=== PATIENT | male | born 1940 | race Caucasian/White ===

== ENCOUNTER 2020-11-22 18:24 | Emergency (ER) | payer MEDICARE, MEDICAID, SELFPAY ==
[2020-11-22 18:52] VITALS: BP 130/52; PULSE 87; RESP 16; TEMP 37.2; O2SAT 97; BMI 25.4
[2020-11-22 19:40] LABS: Influenza A PCR NEGATIVE (Negative); Influenza B PCR NEGATIVE (Negative); Resp Syncy Virus RNA Qual PCR NEGATIVE (Negative); SARS COV2 PCR INHOUSE POSITIVE (Negative)
--- NOTE | 2020-11-22 20:12 | ED.MEDCLEAR ---
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 When I asked the patient directly, he denied any trouble breathing, shortness of breath or chest pain. 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 Related Information Allergies Allergy/AdvReac Type Severity Reaction Status Date / Time pollen extracts [POLLEN] Allergy Unknown UNKOWN Unverified 12/16/19 15:12 Review of Systems Review of Systems: Yes all other systems are reviewed and are negative PMFSH Past Medical History Medical History BPH (benign prostatic hyperplasia) Diabetes Hypertension Intellectual disability Osteoarthritis Social History Social History Advance Directives: No Advance Directives Information Provided: No Physical Exam Vital Signs: Vital Signs: Last Vital Signs Temp 99.0 F 11/22/20 18:52 Pulse 87 11/22/20 18:52 Resp 16 11/22/20 18:52 BP 130/52 L 11/22/20 18:52 Pulse Ox 97 11/22/20 18:52 Body Mass Index 25.4 Const: General: cooperative, healthy appearing, comfortable, no acute distress and well developed Nutritional Appearance: average body habitus Orientation/consciousness: Other orientation findings (Intellectually disabled, unable to perform test) Limitations: wheelchair HENMT: Head: Yes normal to inspection General nose exam: Normal external nose present Face and sinus: Yes normal facial exam Mouth: Normal oral and palatal mucosa present and moist mucous membranes Eyes: General: appearance normal, both eyes and all related structures Neck: Neck: Yes normal visual inspection and Yes full ROM Resp: Effort & Inspection: normal respiratory effort and able to speak in complete sentences Auscultation: clear to auscultation bilaterally Cardio: Rate: regular rate Rhythm: regular rhythm Heart sounds: normal S1 and S2 GI: Inspection: Yes normal to inspection Skin: General skin exam: no rashes or lesions noted Extrem: General: Yes normal to inspection MDM - Medical Clearance Lab Data Attestation: I reviewed the patient's lab results. Labs: Lab Results 11/22/20 Range/Units 18:55 Coronavirus (PCR) POSITIVE A (Negative) Influenza Type A (PCR) NEGATIVE (Negative) Influenza Type B (PCR) NEGATIVE (Negative) RSV RNA Qual (PCR) NEGATIVE (Negative) Discharge Plan Discharge Clinical Impression: COVID-19 Patient Disposition: Home, Self-Care Instructions: COVID-19 (Coronavirus Disease 2019) (ED) Additional Instructions: Please be sure to quarantine as instructed in the attached information. Please make sure the alf you within tests anyone who has been in contact with you over the last few days as they have been exposed to COVID as well. Since you are vaccinated, your symptoms should be mild, please treat her symptoms with [id number] medications. If he should develop shortness of breath, chest pain or any other concerning symptoms, please return to the emergency room or call 911.
== END 2020-11-22 20:20 | disposition home or self-care (01) ==
PROVIDERS: Emergency Provider Internal Medicine
DX: U07.1 COVID-19 (principal); Z79.899 Other long term (current) drug therapy
CPT/HCPCS: 0241U; 36415; 99283

== ENCOUNTER 2021-04-08 07:04 | Emergency (ER) | payer MEDICARE, MEDICAID, SELFPAY ==
--- NOTE | 2021-04-08 | ECG_ITS ---
Test Reason : fever Blood Pressure : / mmHG Vent. Rate : 104 BPM Atrial Rate : 104 BPM P-R Int : 154 ms QRS Dur : 080 ms QT Int : 322 ms P-R-T Axes : 040 074 044 degrees QTc Int : 423 ms Sinus tachycardia with frequent Premature ventricular complexes Otherwise normal ECG When compared with ECG of 20-AUG-2018 07:11, Premature ventricular complexes are now Present Referred By: Generic ED Physician Electronically Signed By:ELOISA PEREZ
--- NOTE | ~2021-04-08 | XR_ITS ---
EXAMINATION: XR CHEST CLINICAL INFORMATION: Fever. COMPARISON: Most recent chest radiograph dated 08/19/2018. TECHNIQUE: Frontal view of the chest was obtained. FINDINGS: Chronic interstitial prominence with minimal peripheral opacities in the left lung, new when compared to the prior examination. No pleural effusion or pneumothorax. Stable cardiomediastinal silhouette. Healed right rib fracture. No acute osseous abnormality. XR/XR chest 1V IMPRESSION: Minimal peripheral opacities in the left lung, new when compared to the prior examination.
[2021-04-08 07:18] VITALS: BP 171/68; PULSE 102; RESP 18; TEMP 38; O2SAT 96; BMI 25.7
[2021-04-08 07:46] LABS: MANUAL DIFF FLAG NO
[2021-04-08 07:47] LABS: Basophils Percent Auto 0.2 % (0-2); Eosinophils Absolute Auto 0.1 X10*3/uL (0.0-0.4); Eosinophils Percent Auto 0.5 % (0-4); Hematocrit 37.8 % (42.0-52.0); Hemoglobin 12.6 g/dl (14.0-18.0); Imm Gran Pct Auto 0.6 % (0.0-0.4); Lymphocytes Absolute Auto 1.3 X10*3/uL (1.2-4.9); Lymphocytes Percent Auto 7.4 % (20-40); Mean Corpuscular HGB Conc 33.3 g/dl (31.0-36.0); Mean Corpuscular Hemoglobin 29.9 pg (27.0-33.0); Mean Corpuscular Volume 89.8 fL (80.0-98.0); Mean Platelet Volume 10.5 fL (9.4-12.4); Monocytes Percent Auto 6.1 % (2-11); Neutrophils Absolute Auto 14.5 x10*3/uL (2.0-8.3); Neutrophils Percent Auto 85.2 % (45-73); Platelet Count 169 X10*3/uL (160-400); Red Blood Count 4.21 X10*6/uL (4.60-5.80); Red Cell Distribution Width 12.4 % (11.0-16.0)
--- NOTE | 2021-04-08 07:53 | ED.FEVER ---
HPI - Fever General Chief Complaint: Fever Stated Complaint: fever Time Seen by Provider: 04/08/21 07:53 Source: EMS Mode of arrival: EMS History of Present Illness HPI Narrative: [facility] with history of psychotic disorder hypertension diabetes sent for temperature of 103.2 degrees details not available patient is with poor comprehension unable to give any details Related Data Previous Rx's Medication Instructions Recorded cefpodoxime 100 mg tablet 100 mg PO BID #20 tab 04/08/21 Allergies Allergy/AdvReac Type Severity Reaction Status Date / Time pollen extracts [POLLEN] Allergy Unknown UNKOWN Unverified 12/16/19 15:12 Review of Systems Review of Systems: Yes Unobtainable due to mental status PMFSH Past Medical History Medical History BPH (benign prostatic hyperplasia) Diabetes Hypertension Intellectual disability Osteoarthritis Social History Social History Alcohol intake: unknown Patient Tobacco Use Status: Tobacco use Unknown Use of substances other than those prescribed or required for medical reasons: Unknown Advance Directives: No Advance Directives Information Provided: Yes Physical Exam Vital Signs: Vital Signs: Last Vital Signs Temp 100.4 F 04/08/21 07:18 Pulse 102 H 04/08/21 07:18 Resp 18 04/08/21 07:18 BP 171/68 H 04/08/21 07:18 Pulse Ox 96 04/08/21 07:18 BMI result Body Mass Index 25.7 Appearance: Alert. Oriented X1 No acute distress. Eyes: PERRLA, No Nystagmus ENT: Pharynx normal. Oral Mucosa moist Neck: Normal inspection. Neck supple. CVS: Normal heart rate and rhythm. Pulses normal. Respiratory: No respiratory distress. Equal air entry bilateral, no wheezing/rales/rhonchi Abdomen: Soft and nontender. Bowel sounds are present, no mass palpable, no CVA tenderness Skin: Skin warm and dry. Normal skin color. Normal skin turgor. Extremities: No lower extremity edema. No calf tenderness Neuro: Oriented X 3. No motor deficit. MDM - Fever MDM Narrative Medical decision making narrative: Patient low-grade fever with leukocytosis and UTI no actively vomiting looks comfortable will give 1 g of IV Rocephin in the ER and discharge patient [facility] on cef[facility]. Lab Data Attestation: I reviewed the patient's lab results. Result diagrams: 04/08/21 07:40 04/08/21 07:40 Labs: Lab Results 04/08/21 04/08/21 04/08/21 Range/Units 07:40 07:40 07:40 WBC 17.0 H (4.8-10.8) X10*3/uL RBC 4.21 L (4.60-5.80) X10*6/uL Hgb 12.6 L (14.0-18.0) g/dl Hct 37.8 L (42.0-52.0) % MCV 89.8 (80.0-98.0) fL MCH 29.9 (27.0-33.0) pg MCHC 33.3 (31.0-36.0) g/dl RDW 12.4 (11.0-16.0) % Plt Count 169 (160-400) X10*3/uL MPV 10.5 (9.4-12.4) fL Immature Gran % (Auto) 0.6 H (0.0-0.4) % Neut % (Auto) 85.2 H (45-73) % Lymph % (Auto) 7.4 L (20-40) % [place] % (Auto) 6.1 (2-11) % Eos % (Auto) 0.5 (0-4) % Baso % (Auto) 0.2 (0-2) % Lymph # (Auto) 1.3 (1.2-4.9) X10*3/uL [place] # (Auto) 1.0 (0.1-1.2) X10*3/uL Eos # (Auto) 0.1 (0.0-0.4) X10*3/uL Baso # (Auto) 0.0 (0.0-0.2) X10*3/uL Abs Immat Gran (auto) 0.10 H (0.00-0.03) X10*3/uL Absolute Neuts (auto) 14.5 H (2.0-8.3) x10*3/uL Absolute Nucleated RBC 0.000 (0.0-0.012) X10*3/uL Nucleated RBC % (auto) 0.0 (0.0-0.2) /100WBC Sodium 140 (135-145) mmol/L Potassium 3.9 (3.3-5.1) mmol/L Chloride 107 (96-108) mmol/L Carbon Dioxide 24 (22-29) mmol/L Anion Gap 13 (12-20) BUN 22 H (9-16) mg/dL Creatinine 0.81 (0.5-1.4) mg/dL Estim Creat Clear Calc 59.8 Estimated GFR > 60 Random Glucose 125 H (60-115) mg/dL Lactic Acid (0.5-2.0) mmol/L Calcium 8.8 (8.4-10.2) mg/dL Total Bilirubin 1.0 (0.0-1.0) mg/dL AST 15 (5-37) U/L ALT 16 (0-40) U/L Alkaline Phosphatase 81 (39-117) U/L Troponin I High Sens 11.2 (<3.5-35.0) ng/L Total Protein 6.4 L (6.5-8.0) g/dL Albumin 3.5 (3.5-5.0) g/dL Urine Color Urine Appearance Urine pH (5.0-8.0) Ur Specific [place] (1.005-1.025) Urine Protein (NEG-TRACE) MG/DL Urine Glucose (UA) (NEG) MG/DL Urine Ketones (NEG) MG/DL Urine Blood (NEG) Urine Nitrite (NEG) Ur Leukocyte Esterase (NEG) Urine RBC (0) /HPF Urine WBC (0-4) /HPF Ur Squamous Epith Cells /LPF Urine Bacteria /LPF COVID-19 (BRAD) (Negative) COVID-19 Clin Com 04/08/21 04/08/21 04/08/21 Range/Units 07:41 07:41 09:37 WBC (4.8-10.8) X10*3/uL RBC (4.60-5.80) X10*6/uL Hgb (14.0-18.0) g/dl Hct (42.0-52.0) % MCV (80.0-98.0) fL MCH (27.0-33.0) pg MCHC (31.0-36.0) g/dl RDW (11.0-16.0) % Plt Count (160-400) X10*3/uL MPV (9.4-12.4) fL Immature Gran % (Auto) (0.0-0.4) % Neut % (Auto) (45-73) % Lymph % (Auto) (20-40) % [place] % (Auto) (2-11) % Eos % (Auto) (0-4) % Baso % (Auto) (0-2) % Lymph # (Auto) (1.2-4.9) X10*3/uL [place] # (Auto) (0.1-1.2) X10*3/uL Eos # (Auto) (0.0-0.4) X10*3/uL Baso # (Auto) (0.0-0.2) X10*3/uL Abs Immat Gran (auto) (0.00-0.03) X10*3/uL Absolute Neuts (auto) (2.0-8.3) x10*3/uL Absolute Nucleated RBC (0.0-0.012) X10*3/uL Nucleated RBC % (auto) (0.0-0.2) /100WBC Sodium (135-145) mmol/L Potassium (3.3-5.1) mmol/L Chloride (96-108) mmol/L Carbon Dioxide (22-29) mmol/L Anion Gap (12-20) BUN (9-16) mg/dL Creatinine (0.5-1.4) mg/dL Estim Creat Clear Calc Estimated GFR Random Glucose (60-115) mg/dL Lactic Acid 0.8 (0.5-2.0) mmol/L Calcium (8.4-10.2) mg/dL Total Bilirubin (0.0-1.0) mg/dL AST (5-37) U/L ALT (0-40) U/L Alkaline Phosphatase (39-117) U/L Troponin I High Sens (<3.5-35.0) ng/L Total Protein (6.5-8.0) g/dL Albumin (3.5-5.0) g/dL Urine Color YELLOW Urine Appearance CLOUDY Urine pH 6.0 (5.0-8.0) Ur Specific [place] 1.020 (1.005-1.025) Urine Protein 1+ H (NEG-TRACE) MG/DL Urine Glucose (UA) NEG (NEG) MG/DL Urine Ketones 15 (NEG) MG/DL Urine Blood 2+ H (NEG) Urine Nitrite POS H (NEG) Ur Leukocyte Esterase 3+ H (NEG) Urine RBC 10-14 H (0) /HPF Urine WBC TNTC H (0-4) /HPF Ur Squamous Epith Cells NONE /LPF Urine Bacteria 2+ /LPF COVID-19 (BRAD) Negative (Negative) COVID-19 Clin Com See Note Discharge Plan Discharge Clinical Impression: UTI (urinary tract infection) Qualifiers: Urinary tract infection type: acute cystitis Hematuria presence: without hematuria Qualified Code(s): N30.00 - Acute cystitis without hematuria Patient Disposition: Home, Self-Care Instructions: Urinary Tract Infection in Men (ED) Additional Instructions: drink plenty of fluids take antibiotic as prescribed Tylenol/ Motrin for fever Prescriptions: New cefpodoxime 100 mg tablet 100 mg PO BID Qty: 20 RF: 0 Interventions: ED Discharge Assessment Last Done: 04/08/21 10:38 Discharge Date/Time: 04/08/21 11:20
[2021-04-08 08:00] LABS: COVID-19 Test Negative (Negative)
[2021-04-08 08:02] LABS: Lactic Acid 0.8 mmol/L (0.5-2.0)
[2021-04-08 08:09] LABS: Alanine Aminotransferase 16 U/L (0-40); Albumin Level 3.5 g/dL (3.5-5.0); Alkaline Phosphatase 81 U/L (39-117); Anion Gap 13 (12-20); Aspartate Amino Transferase 15 U/L (5-37); Blood Urea Nitrogen 22 mg/dL (9-16); Calcium 8.8 mg/dL (8.4-10.2); Carbon Dioxide 24 mmol/L (22-29); Chloride 107 mmol/L (96-108); Creatinine Clr Calc Pharmacy 59.8; Estimated Glomerular Filt Rate > 60; Glucose Random 125 mg/dL (60-115); Potassium 3.9 mmol/L (3.3-5.1); Sodium 140 mmol/L (135-145); Total Protein 6.4 g/dL (6.5-8.0)
[2021-04-08 08:13] LABS: Troponin-I High Sensitivity 11.2 ng/L (<3.5-35.0)
[2021-04-08 09:43] LABS: Appearance Urine CLOUDY; Color Urine YELLOW; Glucose Urine UA NEG (NEG); Leukocyte Esterase Urine 3+ (NEG); Nitrite Urine POS (NEG); UACC Culture Trigger YES; Urine Blood 2+ (NEG); Urine Ketones 15 MG/DL (NEG); Urine Protein 1+ MG/DL (NEG-TRACE)
[2021-04-08 09:49] LABS: Bacteria Urine 2+ /LPF; WBC Urine TNTC /HPF (0-4)
[2021-04-08] MEDS: cefTRIAXone sodium 1 GM in 0.9 % Sodium Chloride 50 ML IV (10:16)
== END 2021-04-08 11:20 | disposition home or self-care (01) ==
PROVIDERS: Emergency Provider Internal Medicine
DX: N30.00 Acute cystitis without hematuria (principal); Z20.822 Contact with and (suspected) exposure to COVID-19; R50.9 Fever, unspecified; I10 Essential (primary) hypertension; E11.9 Type 2 diabetes mellitus without complications
CPT/HCPCS: 36415; 51701; 71045; 80053; 81001; 83605; 84484; 85025; 87040; 87086; 87088; 87186; 87635; 93005; 96372; 99284; J0696

== ENCOUNTER 2023-12-26 19:07 | Emergency (ER) | payer MEDICARE, MEDICAID, SELFPAY ==
--- NOTE | ~2023-12-26 | XR_ITS ---
EXAMINATION: XR PELVIS CLINICAL INFORMATION: Trauma pain COMPARISON: None available. TECHNIQUE: AP view of the pelvis portable. FINDINGS: No fracture. Hip joint spaces are maintained. Alignment is anatomic. Sacroiliac joints and pubic symphysis are normal. No abnormal soft tissue calcifications. XR/XR pelvis 1-2V IMPRESSION: Normal pelvis. Electronically signed by: Naresh Nielson MD 12/26/2023 08:53 PM EDT RP
[2023-12-26 19:14] VITALS: BP 141/64; BP 154/62; PULSE 81; PULSE 83; RESP 16; TEMP 36.4; O2SAT 96; O2SAT 98; BMI 19.5
--- NOTE | 2023-12-26 21:15 | ED.FALL ---
HPI - Fall General Chief Complaint: Fall Stated Complaint: Fall from wheelchair, denies complaints Time Seen by Provider: 12/26/23 19:16 Source: other (Caregiver from senior care) History of Present Illness ED Provider: Leonor Brown PA-C HPI Narrative: 83-year-old male with a history of intellectual disabled, psychotic disorder, BPH, HTN, diabetes and osteoarthritis, essentially wheelchair-bound at baseline, presents after a fall at the senior care. Per senior care staff, the patient likes to lower himself to the ground from his wheelchair, he attempted to do so today. However, he began to slip further, staff was able to grab him and lower him to the ground. No true injury was sustained, however per their protocol, the patient requires a medical assessment. Related Data Previous Rx's ?Medication ?Instructions ?Recorded cefpodoxime 100 mg tablet 100 mg PO BID #20 tabs 04/08/21 Allergies Allergy/AdvReac Type Severity Reaction Status Date / Time pollen extracts [POLLEN] Allergy Unknown UNKOWN Verified 12/26/23 19:16 Review of Systems Review of Systems: Unable to obtain secondary to intellectual disability Yes all other systems are reviewed and are negative [facility] Past Medical History Attestation statement: The following information was validated with the patient. Medical History BPH (benign prostatic hyperplasia) Diabetes Hypertension Intellectual disability Osteoarthritis Social History Social History Alcohol intake: unknown Patient Tobacco Use Status: Tobacco use Unknown Advance Directives: No Advance Directives Information Provided: No Physical Exam Vital Signs: Vital Signs: Last Vital Signs Temp 97.6 F 12/26/23 19:14 Pulse 81 12/26/23 19:14 Resp 16 12/26/23 19:14 BP 154/62 H 12/26/23 19:14 Pulse Ox 96 12/26/23 19:14 O2 Del Method Room Air 12/26/23 19:14 BMI result Body Mass Index 19.5 Const: Other: Alert, overall well in appearance Orientation/consciousness: oriented to person Resp: Effort & Inspection: normal respiratory effort Cardio: Other: Normal peripheral perfusion Back/Spine/Pelvis: Other: No palpable pain of the length of the spine, no step-offs, no overlying ecchymosis or swelling, no pain elicited with the exam. The patient is somewhat contracted in the position, however can extend his lower extremities. He is able to use his upper extremities to help roll and manipulate positioning in the bed. Skin: Other: Warm dry no rash, there was no tissue breakdown noted over the sacral region or buttocks or perineum, he is in a brief which was saturated Neuro: General: oriented to person and CN's II-XI intact bilaterally Extrem: Other: Moves all extremities independently Psych: Other: Cooperative Medical Decision Making Medical Decision Making MDM Narrative: 83-year-old male with a history of intellectual disabled, psychotic disorder, BPH, HTN, diabetes and osteoarthritis, essentially wheelchair-bound at baseline, presents after a fall at the senior care. Per senior care staff, the patient likes to lower himself to the ground from his wheelchair, he attempted to do so today. However, he began to slip further, staff was able to grab him and lower him to the ground. No true injury was sustained, however per their protocol, the patient requires a medical assessment. Problem: Age, intellectual disability, mobility issues History: Per EMS and caregiver I have considered the following differential diagnoses: Fracture, dislocation, contusion Plan: Given the mechanism, it is highly unlikely the patient has sustained a fracture, however the caregiver will feel better to obtain imaging of his pelvis. We will do so to note my exam was benign I have independently reviewed the following tests: X-ray pelvis: No fracture no dislocation, arthritic changes noted Discharge Plan Discharge Clinical Impression: Accidental fall from wheelchair Patient Disposition: Home, Self-Care Additional Instructions: The x-ray of the pelvis was negative for fracture or dislocation, the patient does have arthritis. The patient can follow up with their primary care provider as needed. The patient can use [id number] Tylenol 1000 mg taken every 8 hours, if they complain of discomfort. Prescriptions: No Action cefpodoxime 100 mg tablet 100 mg PO BID Qty: 20 0RF Rx Instructions: must administer with a meal/food Print Language: Sinhala
[2023-12-26 22:45] VITALS: BP 138/86; PULSE 81; RESP 16; TEMP 36.4; O2SAT 96
== END 2023-12-26 22:45 | disposition home or self-care (01) ==
PROVIDERS: Emergency Provider Internal Medicine
DX: Z03.89 Encounter for observation for other suspected diseases and conditions ruled out (principal); Z91.81 History of falling; Z99.3 Dependence on wheelchair
CPT/HCPCS: 72170; 99282; 99283

== ENCOUNTER 2025-03-07 18:06 | Emergency (ER) | payer MEDICARE, MEDICAID, SELFPAY ==
--- NOTE | ~2025-03-07 | XR_ITS ---
CLINICAL HISTORY: chest pain, cough 1 view chest x-ray Comparison: None provided Findings: Mildly reduced lung volumes. Mild diffuse prominence of interstitial markings. No large pleural effusion. No pneumothorax. Normal heart size and central pulmonary vascularity. No acute soft tissue or osseous abnormality. Impression: 1. Mild prominence of interstitial markings. Findings may be accentuated by low lung volumes however mild interstitial edema or pneumonitis could be considered in the appropriate clinical setting. This document has been electronically signed by: Sumit Case MD on 03/07/2025 20:03:19
[2025-03-07 18:13] VITALS: BP 180/100; PULSE 104; O2SAT 97
--- NOTE | 2025-03-07 18:17 | ECG_ITS ---
Test Reason : cp Blood Pressure : */* mmHG Vent. Rate : 90 BPM Atrial Rate : 90 BPM P-R Int : 178 ms QRS Dur : 82 ms QT Int : 374 ms P-R-T Axes : 21 67 36 degrees QTcB Int : 457 ms Normal sinus rhythm with sinus arrhythmia Normal ECG When compared with ECG of 08-Apr-2021 08:16, Premature ventricular complexes are no longer Present Referred By: Generic ED Physician Electronically Signed By: SHARIF STEWART MD
[2025-03-07 18:22] VITALS: BP 180/77; PULSE 93; RESP 18; TEMP 36.4; O2SAT 98; BMI 17.3
[2025-03-07 18:47] LABS: MANUAL DIFF FLAG NO
[2025-03-07 18:50] LABS: Hematocrit 38.8 % (42.0-52.0); Hemoglobin 13.0 g/dl (14.0-18.0); Imm Gran Abs Auto 0.01 X10*3/uL (0.00-0.03); Imm Gran Pct Auto 0.1 % (0.0-0.4); Lymphocytes Absolute Auto 1.8 X10*3/uL (1.2-4.9); Mean Corpuscular HGB Conc 33.5 g/dl (31.0-36.0); Mean Corpuscular Hemoglobin 30.5 pg (27.0-33.0); Mean Corpuscular Volume 91.1 fL (80.0-98.0); NRBC Abs Auto 0.000 X10*3/uL (0.0-0.012); NRBC Pct Auto 0.0 /100WBC (0.0-0.2); Platelet Count 200 X10*3/uL (160-400); Red Blood Count 4.26 X10*6/uL (4.60-5.80); White Blood Count 6.9 X10*3/uL (4.8-10.8)
--- NOTE | 2025-03-07 18:51 | ED_ITS ---
HPI - Chest Pain General Chief Complaint: Chest Pain Stated Complaint: headache, chest pain, non verbal Time Seen by Provider: 03/07/25 18:51 Source: EMS and other (program aide group work) Mode of arrival: EMS Limitations: other (developmental delay) History of Present Illness ED Provider: HPI narrative: 84-year-old male presenting from [facility], he is essentially nonverbal, I spoke with the program aide group work who told me that patient was on a toilet and initially was pointing to his head and then pointed to his chest when asked where the pain is and EMS was called he received nitro and aspirin, when I evaluated the patient he was able to answer my questions and stated he wants to go home and he has no pain, he is otherwise limited historian however Related Data Previous Rx's ?Medication ?Instructions ?Recorded cefpodoxime 100 mg tablet 100 mg PO BID #20 tabs 04/08 Allergies Allergy/AdvReac Type Severity Reaction Status Date / Time pollen extracts (POLLEN) Allergy Unknown UNKOWN Verified 03/07/25 18:24 Review of Systems 2 Constitutional: Constitutional: Reports as per [facility] Past Medical History Medical History Intellectual disability BPH (benign prostatic hyperplasia) Osteoarthritis Hypertension Diabetes Social History Social History Alcohol intake: unknown Patient Tobacco Use Status: Tobacco use Unknown Smoked in Last 30 Days: No Use of substances other than those prescribed or required for medical reasons: No Physical Exam 2 Exam: Exam: ?General: ?Elderly some facial dysmorphia ?PERRLA, EOMI, MMM, Neck: Supple, no LAD ?CV: S1-S2 ?Resp: ?No wheezing rales rhonchi no stridor moving air well Abd: ?Bowel sounds are present, no tenderness no rebound no rigidity Skin: No jaundice ?Neuro: ?Alert able to answer yes and no questions moving upper and lower extremities symmetrically Vital Signs: Vital Signs: Last Vital Signs Temp 97.6 F 03/07/25 18:22 Pulse 93 03/07/25 18:22 Resp 18 03/07/25 18:22 BP 180/77 H 03/07/25 18:22 Pulse Ox 98 03/07/25 18:22 O2 Del Method Room Air 03/07/25 18:22 BMI result Body Mass Index 17.3 Medical Decision Making Medical Decision Making MDM Narrative: 7:13 PM 03/07/2025 (Dr. Sammy Vivar): Patient is a limited historian but he was able to point to his head in the epigastric area according to program aide group work and at bedside when I asked him whether he has pain he is able to answer yes and no questions what she is reassuring, abdominal exam is benign without distention tenderness or decreased bowel sounds to suspect there is underlying abdominal issue necessitating further imaging such as CT abdomen and pelvis, cardiac workup we will be obtained to make sure there is no evidence for underlying ACS, chest x-ray for pneumonia or pneumothorax, he was hypotensive, his list does not reveal any evidence that he is on blood pressure medications I will not start him on at this time given his age and history and we would like his PCP to be involved in this management Paramedics gave aspirin and nitro but this is nonspecific nor sensitive for ACS diagnosis as both can relieve GI pain or esophageal spasm etc. Differential Diagnosis Differential Diagnoses: The differential diagnosis associated with the presentation includes (ACS, SBO, volvulus, cholecystitis, gastritis,) Admission/Observation Consideration of admission/observation: Escalation of care including admission/observation considered Lab Data 03/07/25 18:41 03/07/25 18:41 Labs: Lab Results 03/07/25 Range/Units 18:41 WBC 6.9 (4.8-10.8) X10*3/uL RBC 4.26 L (4.60-5.80) X10*6/uL Hgb 13.0 L (14.0-18.0) g/dl Hct 38.8 L (42.0-52.0) % MCV 91.1 (80.0-98.0) fL MCH 30.5 (27.0-33.0) pg MCHC 33.5 (31.0-36.0) g/dl RDW 12.2 (11.0-16.0) % Plt Count 200 (160-400) X10*3/uL MPV 10.1 (9.4-12.4) fL Immature Gran % (Auto) 0.1 (0.0-0.4) % Neut % (Auto) 61.9 (45-73) % Lymph % (Auto) 26.3 (20-40) % [place] % (Auto) 5.4 (2-11) % Eos % (Auto) 5.7 H (0-4) % Baso % (Auto) 0.6 (0-2) % Lymph # (Auto) 1.8 (1.2-4.9) X10*3/uL [place] # (Auto) 0.4 (0.1-1.2) X10*3/uL Eos # (Auto) 0.4 (0.0-0.4) X10*3/uL Baso # (Auto) 0.0 (0.0-0.2) X10*3/uL Abs Immat Gran (auto) 0.01 (0.00-0.03) X10*3/uL Absolute Neuts (auto) 4.3 (2.0-8.3) x10*3/uL Absolute Nucleated RBC 0.000 (0.0-0.012) X10*3/uL Nucleated RBC % (auto) 0.0 (0.0-0.2) /100WBC Sodium 142 (135-145) mmol/L Potassium 4.1 (3.3-5.1) mmol/L Chloride 107 (96-108) mmol/L Carbon Dioxide 26 (22-29) mmol/L Anion Gap 13 (12-20) BUN 31 H (9-16) mg/dL Creatinine 0.92 (0.5-1.4) mg/dL Estim Creat Clear Calc 46.6 Estimated GFR > 60 Random Glucose 183 H (60-115) mg/dL Calcium 9.0 (8.4-10.2) mg/dL Total Bilirubin 0.3 (0.0-1.0) mg/dL AST 19 (5-37) U/L ALT 14 (0-40) U/L Alkaline Phosphatase 115 (39-117) U/L Total Protein 7.0 (6.5-8.0) g/dL Albumin 4.3 (3.5-5.0) g/dL Independent Interpretation I performed an independent interpretation of an: EKG (90 beats per minute otherwise normal ECG without dysrhythmia, AV jessica blocks or ST-T changes to suspect underlying ACS, my independent interpretation) and Plain X-Ray (My independent chest xray interpretation: Lungs: Lungs are clear bilaterally without evidence of focal consolidation, pleural effusion, or pneumothorax. Cardiac silhouette is unremarkable, no obvious mediastinal widening, no obvious bony abnormalities such as fractures. Impression: Normal chest X-r) Radiology Impression Discussion of test interpretation with radiology: I have reviewed the radiologist's reading. Independent Historian Clinical information obtained from an independent historian. 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) External Record Review External record reviewed: Outside ED record Chronic Conditions Patient?s care impacted by: Other (Developmental delay, hypertension, diabetes) Discharge Plan Discharge Clinical Impression: Chest pain, precordial, Epigastric abdominal pain Additional Instructions: Patient's workup included EKG, chest x-ray, cardiac enzymes in the rest of the blood work which did not reveal any abnormalities, he was not complaining of pain in the ER, he was noted to be hypotensive, in our history I note that there is history of high blood pressure but upon reviewing his list I do not see any medications to treat blood pressure elevation, this is something I would like his PCP to be involved in I would not start this patient on blood pressure medications given his age and risk factors, otherwise there are no changes to his current medications and no new medications that I recommend, follow up with his PCP any other issues or concerns come back to the ER Prescriptions: No Action cefpodoxime 100 mg tablet 100 mg PO BID Qty: 20 0RF Rx Instructions: must administer with a meal/food Print Language: Armenian
[2025-03-07 19:02] LABS: Alanine Aminotransferase 14 U/L (0-40); Albumin Level 4.3 g/dL (3.5-5.0); Alkaline Phosphatase 115 U/L (39-117); Anion Gap 13 (12-20); Aspartate Amino Transferase 19 U/L (5-37); Blood Urea Nitrogen 31 mg/dL (9-16); Calcium 9.0 mg/dL (8.4-10.2); Carbon Dioxide 26 mmol/L (22-29); Chloride 107 mmol/L (96-108); Creatinine Clr Calc Pharmacy 46.6; Estimated Glomerular Filt Rate > 60; Potassium 4.1 mmol/L (3.3-5.1); Sodium 142 mmol/L (135-145); Total Protein 7.0 g/dL (6.5-8.0)
[2025-03-07 19:09] LABS: Troponin-I High Sensitivity 4.0 ng/L (<3.5-35.0)
[2025-03-07 19:21] VITALS: BP 181/79; PULSE 86; RESP 18; TEMP 36.4; O2SAT 98
--- NOTE | 2025-03-07 19:22 | PC.NURSE ---
20 g IV in right forearm
[2025-03-07 19:23] LABS: Resp Syncy Virus RNA Qual PCR NEGATIVE (Negative); SARS COV2 PCR INHOUSE NEGATIVE (Negative)
[2025-03-07 20:02] VITALS: BP 181/79; PULSE 86; RESP 18; TEMP 36.4; O2SAT 98
--- OUTSIDE RECORDS SUMMARY | 2025-03-08 02:26 | XMS_ITS | Clinical Summary ---
Author Organization [facility] Address [address] [place] [address] Phone Care Team Providers Care Piano Instructor Name Role Phone Any Barnes MD Primary Care Provider Medications fluticasone propionate (FLONASE NASL) Activ e fexofenadine HCl (MATEUSZ ORAL) Active omeprazole (PRILOSEC ORAL) Acti ve SPIRONOLACTONE ORAL Active metformin HCl (METFORMIN ORAL) Active pseudoephedrine HCl (SUDAFED ORAL) Active pedi multivit no.17 w-fluoride (MULTIVITAMIN WITH FLUORIDE ORAL) Active Medication-Free Text Acetic Acid Active montelukast sodium (SINGULAIR ORAL) Active Medication-Free Text Risperdal Active Social History Tobacco Use Types Packs/Day Years Used Date Smoking Tobacco: Never Assessed Education Answer Date Recorded Are you interested in more education? Not on nancy e 07/26/2022 Are you concerned about learning? Not on file 07/26/2022 No 07/26/2022 No 07/26/2022 Digital Access Answer Date Recorded No 08/26/2022 No 08/26/2022 No 08/26/2022 Reliable internet access at home? Not on file 08/26/2022 Device with a working camera? Not on file Sex and Gender Information Value Date Recorded Sex Assigned at Not on file Legal Sex Male 10:12 PM EDT Gender Identity Not on file Sexual Orientation Not on file Last Filed Vital Signs Vital Sign Reading Time Taken Comments Blood Pressure 171/81 06/12/2015 11:18 AM EDT Pulse 88 06/12/2015 11:18 AM EDT Temperature - - Respiratory Rate - - Oxygen Saturation - - Inhaled Oxygen Concentration - - Weight - - Height - - Body Mass Index - - Plan of Treatment Health Maintenance Due Date Last Done Comments Adult Td,Tdap Booster 1940 DEPRESSION SCREENING 1951 PNEUMOCOCCAL VACCINES (50+ years) (1 of 1 - PCV) 06/16/1989 ZOSTER VACCINES (1 of 2) 06/16/1989 RSV VACCINE (1 - 1-dose 75+ series) 06/16/2014 INFLUENZA VACCINE (#1) 2024 , 02/06/2019, 03/26/2018 COVID-19 VACCINE (3 - 2024-2 6 season) 2024 05/31/2020, 05/10/2020 CREATININE LEVEL 06/11/2025 06/11/2024, 07/29/2023, 06/16/2018 POTASSIUM LEVEL 06/11/2025 06/11/2024, 07/29/2023, 06/16/2018 HEPATITIS A VACCINES Aged Out No long er eligible based on patient's age to complete this topic HIB VACCINES Aged Out No longer eligi ble based on patient's age to complete this topic MENINGOCOCCAL VACCINES (ACWY) Aged Out No longer eligible based on patient's age to complete this topic MENINGOCOCCAL VACCINES (B) Aged Out N o longer eligible based on patient's age to complete this topic Medical Devices Not on file Procedures Procedure Name Priority Date/Time Associated Diagnosis Comments BASIC METABOLIC PANEL (BMP) Routine 06/11/2024 12:27 PM EDT Feeling of incomplete bladder emptying from Last 3 Months or Most Recently Relevant to Health Maintenance Results * (ABNORMAL) Basic metabolic panel (06/11/2024 12:27 PM EDT) SODIUM 141 133 - 146 mmol/L [facility] CHLORIDE 105 96 - 108 mmol/L [facility] POTASSIUM 4.1 3.3 - 5.1 mmol/L [facility] CO2 28 21 - 35 mmol/L [facility] BUN 28(H) 6 - 19 mg/dL [facility] CREATININE 0.70 0.5 - 1.5 mg/dL [facility] GLUCOSE 127(H) 70 - 99 mg/dL [facility] CALCIUM 9.1 8.4 - 10.3 mg/dL [facility] EGFR 91 >59 mL/min/1.7 3m2 [facility] Comment:Estimated glomerular filtration rate calculated using the CKD-EPI refit equation. ANION GAP 12 10 - 20 mmol/L [facility] Blood 06/11/2024 12:2 7 PM EDT 06/11/2024 12:31 PM EDT us Marbin Cosby PA-C LAB BLOOD BKR ORDERABLES F inal Result [facility] [address] [place] [address] from Last 3 Months or Most Recently Relevant to Health Maintenance Insurance MEDICARE PART A & B MEDICARE PART A & B MEDICARE PART A & B MEDICARE PART A & B MEDICARE PART A & B MEDICARE PART A & B MEDICARE PART A & B MEDICARE PART A & B MEDICARE PART A & B Care Teams Piano Instructor Relationship Specialty Start Date End Date Any Barnes MD [address] [place] [phone] [email or web address] PCP - General 04/03/17 Additional Source Comments The information contained in this document represents components of the legal health record. It is not the complete legal health record.[facility]
--- OUTSIDE RECORDS SUMMARY | 2025-03-08 02:26 | XMS_ITS | Encounter Summary ---
Author Organization [facility] Address [address] [place] [address] Phone Care Team Providers Care Office Manager Receptionist Name Role Phone Any Barnes MD Primary Care Provider Encounter Details Date Type Department Care Team (Late st Contact Info) Description 08/23/2020 Ancillary Orders Virtual Department 30 [place] [address] Tamiko Lugo PA [address] [place] [address] [email or web address] Dysphagia, unspecified type Social History Tobacco Use Types Packs/Day Years Used Date Smoking Tobacco: Never Assessed Sex and Gender Information Value Date Recorded Sex Assigned at Not on file Legal Sex Male 10:12 PM EDT Gender Identity Not on file Sexual Orientation Not on file documented as of this encounter Plan of Treatment Not on file documented as of this encounter Visit Diagnoses Diagnosis Dysphagia, unspecified type documented in this encounter Care Teams Office Manager Receptionist Relationship Specialty Start Date End Date Any Barnes MD [address] [place] [address] PCP - General 04/03/17 documented as of this encounter Additional Source Comments The information contained in this document represents components of the legal health record. It is not the complete legal health record.[facility]
--- OUTSIDE RECORDS SUMMARY | 2025-03-08 02:26 | XMS_ITS | Clinical Summary ---
Author Organization [address] [place] [address] Address [address] [place] [address] Phone Care Team Providers Care Proof Technician Name Role Phone Any Barnes MD Primary Care Provider [phone] Allergies No known active allergies Medications No known medications Encounters Date Type Department Care Team Description 02/10/2025 10:30 AM EST Office Visit Orthopedic [facility] [address] [phone] Rg Harley DPM PVD (peripheral vascular disease) ([facility] V24) (Primary Dx); Arthritis of both feet; Pain in left foot; Pain in right foot; Dermatophytosis, nail; Pain in toes of both feet 12/08/2024 10:30 AM EDT Office Visit [facility] [address] [phone] Rg Harley DPM PVD (peripheral vascular disease) ([facility] V24) (Primary Dx); Arthritis of both feet; Pain in toes of both feet; Dermatophytosis, nail from Last 3 Months Social History Tobacco Use Types Packs/Day Years Used Date Smoking Tobacco: Never Assessed Sex and Gender Information Value Date Recorded Sex Assigned at Male 08/27/2024 10:28 AM EDT Legal Sex Male 10:03 AM EST Gender Identity Male 08/27/2024 10:28 AM EDT Sexual Orientation Straight 08/27/2024 10 :28 AM EDT Last Filed Vital Signs Vital Sign Reading Time Taken Comments Blood Pressure - - Pulse - - Temperature - - Respiratory Rate - - Oxygen Saturation - - Inhaled Oxygen Concentration - - Weight 74.8 kg (165 lb) 10/06/2024 11:12 AM EDT Height 175.3 cm (5' 9.02 ) 10/06/2024 11:12 AM E DT Body Mass Index 24.35 10/06/2024 11:12 AM EDT Plan of Treatment Upcoming Encounters Date Type Department Care Team (Late st Contact Info) Description 05/16/2025 10:45 AM EST Office Visit Orthopedic Surgery - [place] 250 175 [facility] 250 [place] [phone] Rg Harley, DPJannette 175 [facility] 250 [place] [address] Health Maintenance Due Date Last Done Comments DTaP,Tdap,and Td Vaccines (1 - Tdap) 06/16/1959 Pneumococcal Vaccine: 50+ Years (1 of 1 - PCV) 06/16/1989 Cholesterol Screening (Lipid Panel) 03/16/2024 Falls Risk Assessment 03/16/2024 Medicare Annual Wellness Visit 03/16/2024 Social Influencers of Health Screening 03/16/2024 Depression Screening 03/31/2024 COVID-19 Vaccine ( season) 2024 07/02/2021, 05/31/2020, 05/10/2020 Influenza Vaccine (#1) 2024 , 01/30/2022, 03/08/2021, Additional history exists RSV Immunization Adult Patients Completed 02/04/2024 Zoster Vaccines Completed 02/04/2024, 07/02/2021 HIB Vaccines Aged Out No longer eligi ble based on patient's age to complete this topic HPV Vaccines Aged Out No longer eligi ble based on patient's age to complete this topic Hepatitis A Vaccines Aged Out No long er eligible based on patient's age to complete this topic Hepatitis B Vaccines Aged Out No long er eligible based on patient's age to complete this topic IPV Vaccines Aged Out No longer eligi ble based on patient's age to complete this topic MMR Vaccines Aged Out No longer eligi ble based on patient's age to complete this topic Meningococcal ACWY Vaccine Aged Out N o longer eligible based on patient's age to complete this topic Meningococcal B Vaccine Aged Out No l onger eligible based on patient's age to complete this topic RSV Immunization Patients Under 20 months Aged Out No longer eligible based on patient's age to complete this topic Varicella Vaccines Aged Out No longer eligible based on patient's age to complete this topic Insurance MEDICARE MEDICAID - [place] Care Teams Proof Technician Relationship Specialty Start Date End Date Any Barnes MD [address] [place] [address] PCP - General Internal Medicine 03/16/24
--- OUTSIDE RECORDS SUMMARY | 2025-03-08 02:26 | XMS_ITS | Encounter Summary ---
Author Organization [facility] Address [address] [place] [phone] Phone Care Team Providers Care Cleaner And Dyer Name Role Phone Any Barnes MD Primary Care Provider Encounter Details Date Type Department Care Team (Late st Contact Info) Description 11/09/2024 Transcribe Orders Virtual Department [address] [place] [address] Any Barnes MD [address] [place] [address] [email or web address] Dysphagia, unspecified type (Primary Dx) Social History Tobacco Use Types Packs/Day Years [...] on file documented as of this encounter Results * FL (Speech) Video Swallow Study (11/24/2024 12:22 PM EDT) Anatomical Region Laterality Modality Radio Fluoroscop y 11/24/2024 12:3 0 PM EDT Impressions 11/24/2024 1:01 PM EDT No janett aspiration was observed during this examination. Chronic but slightly diminished penetration with thin and nectar thick barium. Please refer to the clinical notes by the Speech Pathologist for detailed description of the Modified Swallow findings. FLUOROSCOPY TIME: 1 minute 54 seconds NUMBER OF IMAGES: [id number] The examination was performed by RRAAlli. Dr. Ephraim Cummings was immediately available for portions of the procedure as needed. ATTESTATION: I, Ephraim Cummings as teaching physician, have reviewed the images for this case and if necessary edited the report originally created by Alli Aguilar. Narrative 11/24/2024 1:01 PM EDT FL MODIFIED BARIUM SWALLOW HISTORY: Dysphagia. COMPARISON:Modified barium swallow 04/19/2021. TECHNIQUE: Fluoroscopic assistance was provided for the speech pathologist during video swallow. The patient was observed in the lateral projection while being fed various consistencies of barium (thin liquids, applesauce, pudding and cracker). FINDINGS: The oral and pharyngeal stages of swallowing will be reported separately by the Department of Speech and Language Pathology. Fluoroscopic examination demonstrated premature spillage into the vallecular and piriform sinus prior to the initiation of the swallow. Laryngeal penetration was seen with thin and nectar thick barium without aspiration. Penetration appeared less deep than on the prior study. No janett aspiration or laryngeal penetration seen with semisolids or solids. Mild vallecular residue. Procedure Note Ephraim Cummings MD - 11/24/2024 FL MODIFIED BARIUM SWALLOW HISTORY: Dysphagia. COMPARISON:Modified barium swallow 04/19/2021. TECHNIQUE: Fluoroscopic assistance was provided for the speech pathologist duringvideo swallow. The patient was observed in the lateral projection whilebeing fed various consistencies of barium (thin liquids, applesauce,pudding and cracker). FINDINGS: The oral and pharyngeal stages of swallowing will be reported separatelyby the Department of Speech and Language Pathology. Fluoroscopic examination demonstrated premature spillage into thevallecular and piriform sinus prior to the initiation of the swallow.Laryngeal penetration was seen with thin and nectar thick barium withoutaspiration. Penetration appeared less deep than on the prior study. Nofrank aspiration or laryngeal penetration seen with semisolids or solids.Mild vallecular residue. IMPRESSION: No janett aspiration was observed during this examination. Chronic butslightly diminished penetration with thin and nectar thick barium. Please refer to the clinical notes by the Speech Pathologist for detaileddescription of the Modified Swallow findings. FLUOROSCOPY TIME: 1 minute 54 seconds NUMBER OF IMAGES: [id number] The examination was performed by RRAAlli. Dr. Ephraim Cummings wasimmediately available for portions of the procedure as needed. ATTESTATION: I, Ephraim Cummings as teaching physician, have reviewed theimages for this case and if necessary edited the report originally createdby Alli Aguilar. Any Barnes MD IMG FL EXAMS Final Resul t documented in this encounter Visit Diagnoses Diagnosis Dysphagia, unspecified type- Primary Dysphagia, unspecified type- Primary documented in this encounter Care Teams Cleaner And Dyer Relationship Specialty Start Date End Date Any Barnes MD [address] [place] [address] [email or web address] PCP - General 04/03/17 documented as of this encounter Additional Source Comments The information contained in this document represents components of the legal health record. It is not the complete legal health record.[facility]
--- OUTSIDE RECORDS SUMMARY | 2025-03-08 02:26 | XMS_ITS | Encounter Summary ---
Author Organization [facility] Address [address] [place] [phone] Phone Care Team Providers Care Senior Accounting Analyst Name Role Phone Any Barnes MD Primary Care Provider Encounter Details Date Type Department Care Team (Late st Contact Info) Description 03/03/2020 Transcribe Orders Virtual Department [address] [place] [address] Any Barnes MD [address] [place] [phone] [email or web address] Exposure to SARS-associated coronavirus (Primary Dx) Social History Tobacco Use Types Packs/Day Years Used Date Smoking Tobacco: Never Assessed Sex and Gender Information Value Date Recorded Sex Assigned at Not on file Legal Sex Male 10:12 PM EDT Gender Identity Not on file Sexual Orientation Not on file documented as of this encounter Plan of Treatment Not on file documented as of this encounter Results * COVID-19 PCR Order (03/07/2020 7:58 AM EST) COVID Testing Status Specimen received in analyzing lab. [facility] Symptomatic? NO [facility] Other 03/07/2020 7:58 AM EST 03/07/2020 12:34 PM EST us Any Barnes MD LAB GENERAL ORDERABLES Marlene l Result [facility] [address] [place] [address] [facility] [address] [place] [address], [place] [address] documented in this encounter Visit Diagnoses Diagnosis Exposure to SARS-associated coronavirus- Primary documented in this encounter Additional Health Concerns Infection Onset Date Last Indicated Resolved Time CoV-Exposed Comment:Recent close contact 03/03/2020 03/03/2020 03/17/2020 1:25 AM EST documented as of this encounter Care Teams Senior Accounting Analyst Relationship Specialty Start Date End Date Any Barnes MD [address] [place] [phone] [email or web address] PCP - General 04/03/17 documented as of this encounter Additional Source Comments The information contained in this document represents components of the legal health record. It is not the complete legal health record.[facility]
--- OUTSIDE RECORDS SUMMARY | 2025-03-08 02:26 | XMS_ITS | Encounter Summary ---
Author Organization [facility] Address [address] [facility] [address] [place] [phone] Phone Care Team Providers Care Rig Manager Name Role Phone Any Barnes MD Primary Care Provider [phone] Encounter Details Date Type Department Care Team (Late st Contact Info) Description 01/30/2018 Transcribe Orders [facility] Specimen Processing [address] [place] [address] Any Barnes MD [address] [place] [address] [email or web address] Dysuria (Primary Dx) Social History Tobacco Use Types Packs/Day Years Used Date Smoking Tobacco: Never Assessed Sex and Gender Information Value Date Recorded Sex Assigned at Not on file Legal Sex Male 10:12 PM EDT Gender Identity Not on file Sexual Orientation Not on file documented as of this encounter Plan of Treatment Not on file documented as of this encounter Results * Urinalysis (01/30/2018 1:25 PM EDT) COLOR Yellow Yellow [facility] CLARITY Clear [facility] GLUCOSE Negative Negative [facility] BILI Negative Negative [facility] KETONES Negative Negative [facility] SPECIFIC GRAVITY 1.010 1.005 - 1.030 [facility] BLOOD Negative Negative [facility] PH 6.0 5.0 - 8.0 [facility] Protein-UA Negative Negative [facility] NITRITE Negative Negative [facility] Leukocyte esterase, ur Negative Negative [facility] Urine (Urine) 01/30/2018 1:2 5 PM EDT 01/30/2018 1:27 PM EDT Any Barnes MD LAB URINE ORDERABLES Final Result Performing Organization Address City/[facility]/ZIP Co de Phone Number [address] [address] * Urine culture (01/30/2018 1:25 PM EDT) Specimen Source/ Description URINE URINE URINE [facility] Special Requests None [facility] GRAM STAIN NO ORGANISMS SEEN [facility] Culture/Test <10,000 colony forming units per ml [facility] Report Status 02/01/2018 FINAL [facility] Urine (Urine) 01/30/2018 1:2 5 PM EDT 01/30/2018 1:27 PM EDT Any Barnes MD LAB MICROBIOLOGY CULTURE OR DERABLES Final Result Performing Organization Address City/[facility]/ZIP Co de Phone Number [address] [phone] documented in this encounter Visit Diagnoses Diagnosis Dysuria- Primary documented in this encounter Additional Health Concerns Infection Onset Date Last Indicated Resolved Time CoV-Exposed Comment:Recent close contact 03/03/2020 03/03/2020 03/17/2020 1:25 AM EST documented as of this encounter Care Teams Rig Manager Relationship Specialty Start Date End Date Any Barnes MD [address] [place] [address] [email or web address] PCP - General 04/03/17 documented as of this encounter Additional Source Comments The information contained in this document represents components of the legal health record. It is not the complete legal health record.[facility]
--- OUTSIDE RECORDS SUMMARY | 2025-03-08 02:26 | XMS_ITS | Encounter Summary ---
Author Organization [facility] Address [address] [place] [address] Phone Care Team Providers Care Structural Steel Detailer Name Role Phone Any Barnes MD Primary Care Provider Encounter Details Date Type Department Care Team (Late st Contact Info) Description 03/15/2021 Transcribe Orders Virtual Department [address] [place] [address] Any Barnes MD [address] [place] [address] [email or web address] Dysgraphia (Primary Dx) Social History Tobacco Use Types [...] Results * FL (Speech) Video Swallow Study (04/19/2021 11:03 AM EST) Anatomical Region Laterality Modality Radio Fluoroscop y 04/19/2021 11:4 1 AM EST Impressions 04/19/2021 12:16 PM EST Evidence of laryngeal penetration with thin barium and nectar. Full report from speech pathology to follow. FLUOROSCOPY TIME: 2 min. 25 sec; 1620 IMAGES/FRAMES Narrative 04/19/2021 12:16 PM EST EXAM: FL (SPEECH) VIDEO SWALLOW STUDY FLUOROSCOPY MODIFIED BARIUM SWALLOW HISTORY: Dysphagia Comparison: None Discussion: Fluoroscopic guidance with lateral views of the neck was provided to speech pathology for evaluation of swallow function. A variety of food and liquid consistencies was given to swallow. There was pharyngeal residue in multiple sequences. There was laryngeal penetration with thin barium and nectar (please note that the nectar sequence is series 15). No janett tracheal aspiration. Procedure Note Leonora Almanza MD - 04/19/2021 EXAM: FL (SPEECH) VIDEO SWALLOW STUDY FLUOROSCOPY MODIFIED BARIUM SWALLOW HISTORY: Dysphagia Comparison: None Discussion: Fluoroscopic guidance with lateral views of the [facility] of [facility] function. A variety of foodand liquid consistencies was given to swallow. There was pharyngealresidue in multiple sequences. There was laryngeal penetration with thinbarium and nectar (please note that the nectar sequence is series 15). Nofrank tracheal aspiration. IMPRESSION: Evidence of laryngeal penetration with thin barium and nectar. Fullreport from speech pathology to follow. FLUOROSCOPY TIME: 2 min. 25 sec; 1620 IMAGES/FRAMES Any Barnes MD IMG FL EXAMS Final Resul t documented in this encounter Visit Diagnoses Diagnosis Dysgraphia- Primary Other symbolic dysfunction Dysphagia, unspecified type- Primary Dysgraphia Other symbolic dysfunction documented in this encounter Care Teams Structural Steel Detailer Relationship Specialty Start Date End Date Any Barnes MD [address] [place] [phone] [email or web address] PCP - General 04/03/17 documented as of this encounter Additional Source Comments The information contained in this document represents components of the legal health record. It is not the complete legal health record.[facility]
== END 2025-03-07 20:02 | disposition home or self-care (01) ==
PROVIDERS: Emergency Provider Emergency Medicine; PCP Internal Medicine
DX: R07.2 Precordial pain (principal); R10.13 Epigastric pain; R05.9 Cough, unspecified; Z03.818 Encounter for observation for suspected exposure to other biological agents ruled out; I10 Essential (primary) hypertension; E11.9 Type 2 diabetes mellitus without complications
CPT/HCPCS: 36415; 71045; 80053; 84484; 85025; 87637; 93005; 99283; 99285

== ENCOUNTER → 2025-03-07 18:17 | Outpatient (BNV) | payer MEDICARE, MEDICAID, SELFPAY | PROVIDERS: Emergency Provider Emergency Medicine; PCP Internal Medicine; Visit Provider Internal Medicine Cardiovascular Disease | DX: R07.9 Chest pain, unspecified (principal) | CPT/HCPCS: 93010 ==

== ENCOUNTER → 2025-03-07 18:25 | Outpatient (BNV) | payer MEDICARE, MEDICAID, SELFPAY | PROVIDERS: Emergency Provider Emergency Medicine; PCP Internal Medicine; Visit Provider Radiology Diagnostic Radiology | DX: R07.9 Chest pain, unspecified (principal); R05.9 Cough, unspecified | CPT/HCPCS: 71045 ==

== ENCOUNTER 2025-03-09 21:04 | Emergency (ER) | payer MEDICARE, MEDICAID, SELFPAY ==
[2025-03-09 21:07] VITALS: BP 168/80; BP 200/80; PULSE 80; PULSE 88; RESP 20; TEMP 36.1; O2SAT 98; BMI 21.6
[2025-03-09 21:30] VITALS: BP 200/80; PULSE 88; RESP 20; TEMP 36.1; O2SAT 98
--- NOTE | 2025-03-09 23:12 | ECG_ITS ---
Test Reason : HTN Blood Pressure : */* mmHG Vent. Rate : 85 BPM Atrial Rate : 85 BPM P-R Int : 178 ms QRS Dur : 82 ms QT Int : 358 ms P-R-T Axes : 58 48 35 degrees QTcB Int : 426 ms Sinus rhythm with Premature atrial complexes Otherwise normal ECG When compared with ECG of 07-Mar-2025 18:19, Premature atrial complexes are now Present Referred By: Xuan Cates Electronically Signed By: SHARIF STEWART MD
--- NOTE | 2025-03-09 23:12 | ED.GENADULT ---
HPI - General Adult General Chief complaint: General Medical Stated complaint: HTN Time Seen by Provider: 03/09/25 23:10 History of Present Illness ED Provider: Xuan Cates NP HPI narrative: 84-year-old male medical history of intellectual disability and baseline nonverbal, BPH, osteoarthritis, diabetes, ? Hypertension but not on medications presents to the ED via EMS from his skilled nursing for evaluation of high blood pressure readings. Per EMS, patient was found to be 168/86 with no active medical complaints. Her skilled nursing, patient was sent to [facility] a few days ago for similar complaints. He was told to follow up with his PCP. The appears he was seen in our ED on 03/07/2025. He has no active medical complaints upon arrival. His skilled nursing staff member does report he had abdominal pain earlier and was pointing to his abdomen. Here, he does not appear to be in any acute distress. Related Data Previous Rx's ?Medication ?Instructions ?Recorded cefpodoxime 100 mg tablet 100 mg PO BID #20 tabs 04/08/21 Allergies Allergy/AdvReac Type Severity Reaction Status Date / Time pollen extracts (POLLEN) Allergy Unknown UNKOWN Verified 03/09/25 21:09 Review of Systems Review of Systems: ROS is otherwise negative unless mentioned in HPI. [facility] Past Medical History Medical History Intellectual disability BPH (benign prostatic hyperplasia) Osteoarthritis Hypertension Diabetes Social History Social History Alcohol intake: unknown Patient Tobacco Use Status: Tobacco use Unknown Advance Directives: Yes Advance Directives Information Provided: No Advance Directives on File: No Do you have a plan to hurt others: No Plan Physical Exam ED Exam Exam: Nursing notes and vital signs reviewed. Constitutional: Well-appearing, NAD. Alert. Eyes: EOMI. ENT: Pharynx normal. Neck: Normal inspection. Neck supple. CVS: Normal heart rate and rhythm. Pulses normal. Respiratory: No respiratory distress. Breath sounds normal. Abdomen: Soft, nontender, nondistended. Skin: Skin warm and dry. Normal skin color. Extremities: No lower extremity edema. Neuro: Oriented X 3. No motor deficit. Vital Signs: Vital Signs - 24 hr 03/09/25 21:07 03/09/25 21:30 12/11/25 00:54 Temperature 97 F 97 F 97.6 F Pulse Rate 88 88 84 Respiratory Rate 20 20 16 Blood Pressure 200/80 H 200/80 H 190/86 H Pulse Oximetry 98 98 94 Oxygen Delivery Method Room Air Room Air Room Air BMI result Body Mass Index 21.6 Medical Decision Making Medical Decision Making MDM Narrative: 1:03 AM 03/10/2025 (Xuan Cates NP): Upon my initial assessment of this patient, he arrives via EMS with an elevated blood pressure reading of 168/86 with no active medical complaints. On arrival to the ED as the pressure was 200/80. He is asymptomatic and has no complaints. I obtained basic labs, which are reassuring and similar to 2 days prior. Initial troponin is flat. Currently pending repeat. Given the skilled nursing member reported some abdominal pain, I did obtain a lipase, LFTs which are normal. Viral panel was negative 2 days ago. Less likely UTI. I spoke on the skilled nursing staff members phone with the patient's healthcare proxy. She expressed concerns about his blood pressure readings being elevated. She wants him admitted for observation incase something bad happens as he cannot communicate . We discussed this extensively. This is not a reason for medical admission. I do see he was seen in our ED 2 days ago with similar complaints. At that time his blood pressure was elevated at 180/77. I see that he has a documented history of hypertension but is for some reason not on medications. I do believe he should follow up with his primary care provider outpatient to initiate antihypertensives, given his advanced age and comorbidities, he is not in any heparin in the emergency and do not feel they are currently indicated in the ED. Per treatment guidelines, the patient should be seen by his PCP for initiation of treatment given his blood pressure is not persistent low markedly elevated above >180/>110-120. He is intermittently elevated. Pending second troponin for disposition. No concern for ACS. 1:25 AM: 2nd troponin this flat. I had an extensive conversation with the skilled nursing staff member, they are agreeable to schedule a follow up appointment with primary care provider outpatient. He has a scheduled appointment with PCP 03/17, I do recommend that they monitor BPs at home and discuss this with the primary care provider. In the chart, his blood pressure has noted to been high back to 2021. This is likely chronic hypertension that has not been managed outpatient previously, though the skilled nursing staff member does tell me that the patient had history of hypotension. I have recommended they discuss with PCP getting a sooner appointment. They are agreeable. Provided return precautions to the ED. Differential Diagnosis Differential Diagnoses: The differential diagnosis associated with the presentation includes hypertension, hypertensive urgency v emergency, isolated episode of HTN Admission/Observation Consideration of admission/observation: Escalation of care including admission/observation considered (Not indicated) Lab Data MDM Lab Attestation statement: I reviewed the patient's lab results. (Reassuring overall. Similar to previous from 2 days prior.) 03/09/25 23:52 03/09/25 23:52 Labs: Lab Results 03/09/25 Range/Units 23:52 WBC 8.0 (4.8-10.8) X10*3/uL RBC 4.14 L (4.60-5.80) X10*6/uL Hgb 12.4 L (14.0-18.0) g/dl Hct 37.0 L (42.0-52.0) % MCV 89.4 (80.0-98.0) fL MCH 30.0 (27.0-33.0) pg MCHC 33.5 (31.0-36.0) g/dl RDW 12.2 (11.0-16.0) % Plt Count 183 (160-400) X10*3/uL MPV 9.8 (9.4-12.4) fL Immature Gran % (Auto) 0.3 (0.0-0.4) % Neut % (Auto) 59.3 (45-73) % Lymph % (Auto) 29.0 (20-40) % [place] % (Auto) 5.9 (2-11) % Eos % (Auto) 4.9 H (0-4) % Baso % (Auto) 0.6 (0-2) % Lymph # (Auto) 2.3 (1.2-4.9) X10*3/uL [place] # (Auto) 0.5 (0.1-1.2) X10*3/uL Eos # (Auto) 0.4 (0.0-0.4) X10*3/uL Baso # (Auto) 0.1 (0.0-0.2) X10*3/uL Abs Immat Gran (auto) 0.02 (0.00-0.03) X10*3/uL Absolute Neuts (auto) 4.7 (2.0-8.3) x10*3/uL Absolute Nucleated RBC 0.000 (0.0-0.012) X10*3/uL Nucleated RBC % (auto) 0.0 (0.0-0.2) /100WBC Sodium 141 (135-145) mmol/L Potassium 3.7 (3.3-5.1) mmol/L Chloride 107 (96-108) mmol/L Carbon Dioxide 29 (22-29) mmol/L Anion Gap 9 L (12-20) BUN 21 H (9-16) mg/dL Creatinine 0.76 (0.5-1.4) mg/dL Estim Creat Clear Calc 68.7 Estimated GFR > 60 Random Glucose 114 (60-115) mg/dL Calcium 8.5 (8.4-10.2) mg/dL Total Bilirubin 0.4 (0.0-1.0) mg/dL AST 20 (5-37) U/L ALT 11 (0-40) U/L Alkaline Phosphatase 83 (39-117) U/L Troponin I High Sens 9.7 D (<3.5-35.0) ng/L Total Protein 6.2 L (6.5-8.0) g/dL Albumin 3.8 (3.5-5.0) g/dL Lipase 13 (8-78) U/L Independent Interpretation I performed an independent interpretation of an: EKG Interpretation: Rate: 85 Rhythm: NSR [place]: 58/48/35 Normal P waves. Normal LOREE. Normal QRS complex. ST T wave : no dep, elev qTC: 426 prior studies:similar The study has been interpreted contemporaneously by me. Independent Historian Clinical information obtained from an independent historian. History obtained from or confirmed by: Other (HCP, as well as skilled nursing staff member ) External Record Review External record reviewed: Other (ER visit) Chronic Conditions Patient?s care impacted by: Hypertension (Not on home medications. Needs to be followed by PCP. ) Social Determinants Patient?s care significantly limited by Social Determinants of Health including: Problems related to primary support group Discharge Plan Discharge Clinical Impression: Elevated blood pressure reading Patient Disposition: Home, Self-Care Instructions: Chronic Hypertension (DC) Additional Instructions: As we discussed, the patient's lab work, cardiac enzymes included, an EKG were overall reassuring today. In the patient's chart, there was a diagnosis of hypertension listed. Please discuss with the primary care provider initiating antihypertensive medications. His blood pressure recordings in our EMR are listed elevated since 2021. This is likely chronic hypertension that is compensating, but may benefit from antihypertensive medications outpatient. Please discuss this with the PCP. I have listed both Gastroenterology and Cardiology per your request. With any worsening complaints, return to the ED for reassessment. Prescriptions: No Action cefpodoxime 100 mg tablet 100 mg PO BID Qty: 20 0RF Rx Instructions: must administer with a meal/food Referrals: Any Barnes MD [Primary Care Provider, Medical] [facility] [Provider Group, Gastroenterology] [facility] [Provider Group] Print Language: Hebrew
[2025-03-09 23:58] LABS: MANUAL DIFF FLAG NO
[2025-03-10 00:01] LABS: Hematocrit 37.0 % (42.0-52.0); Hemoglobin 12.4 g/dl (14.0-18.0); Imm Gran Abs Auto 0.02 X10*3/uL (0.00-0.03); Imm Gran Pct Auto 0.3 % (0.0-0.4); Lymphocytes Absolute Auto 2.3 X10*3/uL (1.2-4.9); Mean Corpuscular HGB Conc 33.5 g/dl (31.0-36.0); Mean Corpuscular Hemoglobin 30.0 pg (27.0-33.0); Mean Corpuscular Volume 89.4 fL (80.0-98.0); NRBC Abs Auto 0.000 X10*3/uL (0.0-0.012); NRBC Pct Auto 0.0 /100WBC (0.0-0.2); Platelet Count 183 X10*3/uL (160-400); Red Blood Count 4.14 X10*6/uL (4.60-5.80); White Blood Count 8.0 X10*3/uL (4.8-10.8)
[2025-03-10 00:15] LABS: Alanine Aminotransferase 11 U/L (0-40); Albumin Level 3.8 g/dL (3.5-5.0); Alkaline Phosphatase 83 U/L (39-117); Anion Gap 9 (12-20); Aspartate Amino Transferase 20 U/L (5-37); Blood Urea Nitrogen 21 mg/dL (9-16); Calcium 8.5 mg/dL (8.4-10.2); Carbon Dioxide 29 mmol/L (22-29); Chloride 107 mmol/L (96-108); Creatinine Clr Calc Pharmacy 68.7; Estimated Glomerular Filt Rate > 60; Lipase 13 U/L (8-78); Potassium 3.7 mmol/L (3.3-5.1); Sodium 141 mmol/L (135-145); Total Protein 6.2 g/dL (6.5-8.0)
[2025-03-10 00:20] LABS: Troponin-I High Sensitivity 9.7 ng/L (<3.5-35.0)
[2025-03-10 00:54] VITALS: BP 190/86; PULSE 84; RESP 16; TEMP 36.4; O2SAT 94
--- OUTSIDE RECORDS SUMMARY | 2025-03-10 01:06 | XMS_ITS | Clinical Summary ---
Author Organization [address] [place] [address] Address [address] [place] [address] Phone Care Team Providers Care Science And Operations Officer Name Role Phone Any Barnes MD Primary Care Provider [phone] Allergies No known active allergies Medications No known medications Encounters Date Type Department Care Team Description 02/10/2025 10:30 AM EST Office Visit Orthopedic [facility] [address] [address] Rg Harley DPM PVD (peripheral vascular disease) (CMS/[facility] V24) (Primary Dx); Arthritis of both feet; Pain in left foot; Pain in right foot; Dermatophytosis, nail; Pain in toes of both feet from Last 3 Months Social History Tobacco [...] 10:45 AM EST Office Visit Orthopedic Surgery [facility] [address] [place] [id number] Rg Harley, DPJannette 175 [facility] [address] [place] [address] Health Maintenance Due Date Last Done Comments [...] patient's age to complete this topic Insurance [place] [address] MEDICARE MEDICAID - [place] Care Teams Science And Operations Officer Relationship Specialty Start Date End [place] [address] PCP - General Internal Medicine 03/16/24
--- OUTSIDE RECORDS SUMMARY | 2025-03-10 01:06 | XMS_ITS | Encounter Summary ---
Author Organization [facility] Address [address] [place] [address] Phone Care Team Providers Care Core Driller Helper Name Role Phone Any Barnes MD Primary Care Provider [phone] Encounter Details Date Type Department Care Team (Late st Contact Info) Description 03/03/2020 Transcribe Orders Virtual Department [address] [place] [address] Any Barnes MD [address] [place] [address] [email or web address] Exposure to SARS-associated coronavirus (Primary Dx) Social [...] Testing Status Specimen received in analyzing lab. [facility] Symptomatic? NO [facility] Other 03/07/2020 7:58 AM EST 03/07/2020 12:34 PM EST us Any Barnes MD LAB GENERAL ORDERABLES Marlene l Result [facility] [address] [place] [address] [facility] [address] [place] [address], [place] [address] documented in this encounter Visit Diagnoses Diagnosis Exposure to SARS-associated coronavirus- Primary documented in this encounter Additional Health Concerns Infection Onset Date Last Indicated Resolved Time CoV-Exposed Comment:Recent close contact 03/03/2020 03/03/2020 03/17/2020 1:25 AM EST documented as of this encounter Care Teams Core Driller Helper Relationship Specialty Start Date End Date Any Barnes MD [address] [place] [phone] [email or web address] PCP - General 04/03/17 documented as of this encounter Additional Source Comments The information contained in this document represents components of the legal health record. It is not the complete legal health record.[facility]
--- OUTSIDE RECORDS SUMMARY | 2025-03-10 01:06 | XMS_ITS | Encounter Summary ---
Author Organization [facility] Address [address] [place] [address] Phone Care Team Providers Care Bumper Machine Operator Name Role Phone Any Barnes MD Primary Care Provider Encounter Details Date Type Department Care Team (Late st Contact Info) Description 11/09/2024 Transcribe Orders Virtual Department [address] [place] [address] Any Barnes MD [address] [place] [phone] [email or web address] Dysphagia, unspecified type (Primary Dx) Social History [...] Primary documented in this encounter Care Teams Bumper Machine Operator Relationship Specialty Start Date End Date Any Barnes MD [address] [place] [address] [email or web address] PCP - General 04/03/17 documented as of this encounter Additional Source Comments The information contained in this document represents components of the legal health record. It is not the complete legal health record.[facility]
--- OUTSIDE RECORDS SUMMARY | 2025-03-10 01:06 | XMS_ITS | Encounter Summary ---
Author Organization [facility] Address [address] [place] [address] Phone Care Team Providers Care Silviculture Professor Name Role Phone Any Barnes MD Primary Care Provider Encounter Details Date Type Department Care Team (Late st Contact Info) Description 03/15/2021 Transcribe Orders Virtual Department [address] [place] [address] Any Barnes MD [address] [place] [phone] [email or web address] Dysgraphia (Primary Dx) Social [...] lateral [facility] the [facility] swallow function. [...] dysfunction documented in this encounter Care Teams Silviculture Professor Relationship Specialty Start Date End Date Any Barnes MD [address] [place] [phone] [email or web address] PCP - General 04/03/17 documented as of this encounter Additional Source Comments The information contained in this document represents components of the legal health record. It is not the complete legal health record.[facility]
--- OUTSIDE RECORDS SUMMARY | 2025-03-10 01:06 | XMS_ITS | Encounter Summary ---
Author Organization [facility] Address [address] [facility] [address] [place] [address] Phone Care Team Providers Care Sales Specialist Name Role Phone Any Barnes MD Primary Care Provider [phone] Encounter Details Date Type Department Care Team (Late st Contact Info) Description 01/30/2018 Transcribe Orders [facility] Specimen Processing [address] [place] [address] nAy Barnes MD [address] [place] [phone] [email or web address] Dysuria (Primary Dx) Social History Tobacco Use [...] (01/30/2018 1:25 PM EDT) COLOR Yellow Yellow [facility] CLARITY Clear [facility] GLUCOSE Negative Negative [facility] BILI Negative Negative [facility] KETONES Negative Negative [facility] SPECIFIC GRAVITY 1.010 1.005 - 1.030 [facility] BLOOD Negative Negative [facility] PH 6.0 5.0 - 8.0 [facility] Protein-UA Negative Negative [facility] NITRITE Negative Negative [facility] Leukocyte esterase, ur Negative Negative [facility] Urine (Urine) 01/30/2018 1:2 5 PM EDT 01/30/2018 1:27 PM EDT Any Barnes MD LAB URINE ORDERABLES Final Result Performing Organization Address City/[facility]/ZIP Co de Phone Number [address] [phone] * Urine culture (01/30/2018 1:25 PM EDT) Specimen Source/ Description URINE URINE URINE [facility] Special Requests None [facility] GRAM STAIN NO ORGANISMS SEEN [facility] Culture/Test <10,000 colony forming units per ml [facility] Report Status 02/01/2018 FINAL [facility] Urine (Urine) 01/30/2018 1:2 5 PM EDT 01/30/2018 1:27 PM EDT Any Barnes MD LAB MICROBIOLOGY CULTURE OR DERABLES Final Result Performing Organization Address City/[facility]/ZIP Co de Phone Number [address] [phone] documented in this encounter Visit Diagnoses Diagnosis Dysuria- Primary documented in this encounter Additional Health Concerns Infection Onset Date Last Indicated Resolved Time CoV-Exposed Comment:Recent close contact 03/03/2020 03/03/2020 03/17/2020 1:25 AM EST documented as of this encounter Care Teams Sales Specialist Relationship Specialty Start Date End Date Any Barnes MD [address] [place] [address] [email or web address] PCP - General 04/03/17 documented as of this encounter Additional Source Comments The information contained in this document represents components of the legal health record. It is not the complete legal health record.[facility]
--- OUTSIDE RECORDS SUMMARY | 2025-03-10 01:06 | XMS_ITS | Clinical Summary ---
Author Organization [facility] Address [address] [place] [address] Phone Care Team Providers Care Occupational Analyst Name Role Phone Any Barnes MD Primary Care Provider [phone] Medications fluticasone propionate (FLONASE NASL) Activ e [...] EDT) SODIUM 141 133 - 146 mmol/L [facility] CHLORIDE 105 96 - 108 mmol/L [facility] POTASSIUM 4.1 3.3 - 5.1 mmol/L [facility] CO2 28 21 - 35 mmol/L [facility] BUN 28(H) 6 - 19 mg/dL [facility] CREATININE 0.70 0.5 - 1.5 mg/dL [facility] GLUCOSE 127(H) 70 - 99 mg/dL [facility] CALCIUM 9.1 8.4 - 10.3 mg/dL [facility] EGFR 91 >59 mL/min/1.7 3m2 [facility] Comment:Estimated glomerular filtration rate calculated using the CKD-EPI refit equation. ANION GAP 12 10 - 20 mmol/L [facility] Blood 06/11/2024 12:2 7 PM EDT 06/11/2024 12:31 PM EDT us Marbin Cosby PA-C LAB BLOOD BKR ORDERABLES F inal Result [facility] [address] [place] [address] from Last 3 Months or Most Recently Relevant to Health Maintenance Insurance MEDICARE PART A & B MEDICARE PART A & B MEDICARE PART A & B MEDICARE PART A & B MEDICARE PART A & B MEDICARE PART A & B MEDICARE PART A & B MEDICARE PART A & B MEDICARE PART A & B Care Teams Occupational Analyst Relationship Specialty Start Date End Date Any Barnes MD [address] [place] [phone] [email or web address] PCP - General 04/03/17 Additional Source Comments The information contained in this document represents components of the legal health record. It is not the complete legal health record.[facility]
--- OUTSIDE RECORDS SUMMARY | 2025-03-10 01:06 | XMS_ITS | Encounter Summary ---
Author Organization [facility] Address [address] [facility] [address] [place] [phone] Phone Care Team Providers Care Market Research Consultant Name Role Phone Any Barnes MD Primary Care Provider [phone] Encounter Details Date Type Department Care Team (Late st Contact Info) Description 08/23/2020 Ancillary Orders Virtual Department [address] [place] [address] Tamiko Lugo PA [address] [place] [address] [email or web address] Dysphagia, unspecified type Social History Tobacco Use [...] type documented in this encounter Care Teams Market Research Consultant Relationship Specialty Start Date End Date Any Barnes MD [address] [place] [address] PCP - General 04/03/17 documented as of this encounter Additional Source Comments The information contained in this document represents components of the legal health record. It is not the complete legal health record.[facility]
[2025-03-10 01:12] LABS: Troponin-I High Sensitivity 9.0 ng/L (<3.5-35.0)
[2025-03-10 01:25] VITALS: BP 190/86; PULSE 84; RESP 16; TEMP 36.4; O2SAT 94
== END 2025-03-10 01:26 | disposition home or self-care (01) ==
PROVIDERS: Nurse Practitioner; Emergency Provider Emergency Medicine; PCP Internal Medicine
DX: I10 Essential (primary) hypertension (principal); E78.5 Hyperlipidemia, unspecified; Z79.899 Other long term (current) drug therapy
CPT/HCPCS: 36415; 80053; 83690; 84484; 85025; 93005; 99283; 99284

== ENCOUNTER → 2025-03-09 23:12 | Outpatient (BNV) | payer MEDICARE, MEDICAID, SELFPAY | PROVIDERS: Emergency Provider Emergency Medicine; PCP Internal Medicine; Visit Provider Internal Medicine Cardiovascular Disease | DX: I49.1 Atrial premature depolarization (principal) | CPT/HCPCS: 93010 ==